=== PATIENT | male | born 1970 | race Caucasian/White ===

== ENCOUNTER 2021-03-23 12:38 | Observation (INO) | payer OTHER ==
[2021-03-23 13:24] VITALS: BMI 24.0
[2021-03-23] MEDS ORDERED: Morphine 4 MG/ML VIAL SLOW IVP PRN (13:30)
[2021-03-23] MEDS ORDERED: Ondansetron PF 4 MG/2 ML Vial IVP PRN (13:30)
[2021-03-23] MEDS ORDERED: HYDROcodone/Acetaminophen 5/325 mg Tablet PO PRN (13:30)
[2021-03-23] MEDS ORDERED: Zolpidem Tartrate 5 MG TAB PO PRN (13:30)
[2021-03-23] MEDS ORDERED: diphenhydrAMINE 50 MG/ML VIAL IVP PRN (13:30)
[2021-03-23] MEDS: D5 1/2 NS w/20 mEq KCL 1,000 ML IV SCH ×2 (14:21→22:00)
[2021-03-23] MEDS: Famotidine 20 MG TAB PO SCH (16:10)
[2021-03-23] MEDS: Ketorolac Tromethamine 30 MG/ML VIAL IVP SCH ×2 (18:00→23:55)
[2021-03-23 22:21] LABS: SARS-CoV-2 PCR by NAA Not Detected (NotDetected)
[2021-03-24] MEDS: D5 1/2 NS w/20 mEq KCL 1,000 ML IV SCH ×2 (06:00→12:18)
[2021-03-24] MEDS: Ketorolac Tromethamine 30 MG/ML VIAL IVP SCH ×2 (06:00→11:47)
[2021-03-24] MEDS ORDERED: Calcium Carbonate 500 MG ChewTAB PO PRN (07:35)
[2021-03-24] MEDS: Famotidine 20 MG TAB PO SCH (08:43)
[2021-03-24 11:13] LABS: #Eosinphils 0.3 thou/uL (0.0-0.7); #Lymphocytes 1.6 thou/uL (1.20-3.40); #Monocytes 0.8 thou/uL (0.11-0.59); #Neutrophils 5.8 thou/uL (1.40-6.50); %Basophils 0.3 % (0.0-1.0); %Eosinophils 3.3 % (0.0-10.0); %Lymphocytes 18.9 % (21.0-51.0); %Neutrophils 68.5 % (42.0-75.0); Hemoglobin 13.5 g/dL (14.0-18.0); Mean Corpuscular HGB CONC 32.8 g/dL (32.0-36.0); Mean Corpuscular Hemoglobin 31.4 pg (27.0-31.0); Mean Corpuscular Volume 95.9 fL (78.0-98.0); Mean Platelet Volume 9.2 fL (7.4-10.4); Platelet Count 158 thou/uL (130-400); RBC Distribution Width 12.2 % (11.5-14.5); Red Blood Cell (RBC) Count 4.29 mill/uL (4.70-6.10); White Blood Cell (WBC) Count 8.5 thou/uL (4.8-10.8)
[2021-03-24 11:30] LABS: Anion Gap 9 mmol/L (10-20); BUN (Urea Nitrogen) 14 mg/dL (8.9-20.6); Calc. Creatinine Clearance 81 mL/min (70-130); Calcium 8.1 mg/dL (7.8-10.44); Carbon Dioxide 24 mmol/L (22-29); Chloride 109 mmol/L (98-107); Glucose 99 mg/dL (70-105); Potassium 4.2 mmol/L (3.5-5.1); Sodium 138 mmol/L (136-145)
[2021-03-24] MEDS ORDERED: Iothalamate Meglumine 60% 50 ML VIAL FS ONE (13:44)
[2021-03-24] MEDS ORDERED: Fentanyl 100 MCG/2 ML VIAL ONE (13:59)
[2021-03-24] MEDS ORDERED: Lidocaine 1% PF 5 ML VIAL ONE (14:06)
[2021-03-24] MEDS ORDERED: Ondansetron PF 4 MG/2 ML Vial ONE (14:06)
[2021-03-24] MEDS ORDERED: Dexamethasone 20 MG/5 ML VIAL ONE (14:06)
[2021-03-24] MEDS ORDERED: PROPOFOL 200 MG/20 ML VIAL ONE (14:06)
[2021-03-24] MEDS ORDERED: HYDROmorphone 2 MG/ML VIAL SLOW IVP PRN (15:09)
[2021-03-24] MEDS ORDERED: Meperidine HCl/PF 25 MG/ML VIAL SLOW IVP PRN (15:09)
[2021-03-24] MEDS ORDERED: Promethazine HCl 25 MG/ML VIAL IM PRN (15:09)
[2021-03-24] MEDS ORDERED: Promethazine HCl 25 MG/ML VIAL IVPB PRN (15:09)
[2021-03-24 17:17] VITALS: BP 132/82; TEMP 97.7
[2021-03-31 14:11] LABS: CA Oxalate Monohydrate 30 % (.); Color Brown (.); Stone Weight 38 mg (.)
== END 2021-03-24 17:15 | disposition home or self-care (01) ==
LOC: INTOOBSV 12:38 → T4-B 12:38
PROVIDERS: ADMIT Urology; ATTEND Urology
PROC: 0TC48ZZ Extirpation of Matter from Left Kidney Pelvis, Via Natural or Artificial Opening Endoscopic (ICD-10-PCS; principal; 2021-03-24)
PROC: 0TC78ZZ Extirpation of Matter from Left Ureter, Via Natural or Artificial Opening Endoscopic (ICD-10-PCS; 2021-03-24)
PROC: 0T778DZ Dilation of Left Ureter with Intraluminal Device, Via Natural or Artificial Opening Endoscopic (ICD-10-PCS; 2021-03-24)
DX: N13.2 Hydronephrosis with renal and ureteral calculous obstruction (principal); J45.909 Unspecified asthma, uncomplicated; G43.909 Migraine, unspecified, not intractable, without status migrainosus; Q61.3 Polycystic kidney, unspecified; Z79.1 Long term (current) use of non-steroidal anti-inflammatories (NSAID); Z79.899 Other long term (current) drug therapy; Z20.822 Contact with and (suspected) exposure to COVID-19; Z98.52 Vasectomy status
CPT/HCPCS: 74420; 82365; 88300; 96374; 96376; C2617; G0378; J1100; J1885; J2270; J2405; J2704; J3010; J3480; Q9961-U8; U0003; U0005